=== PATIENT | female | born 1940 | race Caucasian/White ===

== ENCOUNTER 2017-05-12 11:37 | Emergency (ER) | payer OTHER, MEDICARE ==
[~2017-05-12] VITALS: Ht 167.6 cm; Wt 86.3 kg
[~2017-05-12 11:37] MED LIST: ALEVE220 M2 PO; ANTI-DIARRHEA2 MG PO; ASPIR-LOW81 MG PO; BAYER CHEWABLE81 MG PO; BENADRYL25 MG PO; BIOTIN 5000MCG PO; CLONAZEPAM1 MG PO; COMPAZINE10 MG PO; EFFEXOR XR150 MG PO; ENDOCET 5-3251 EACH PO; FLONASE16 G1 BOTH NARES; IBUPROFEN800 MG PO; LIPITOR20 MG PO; LOMOTIL TABLET1 EACH PO; METFORMIN HCL500 M1 PO; METFORMIN HCL500 M4 PO; RESTASIS MULTI5.5 ML BOTH EYES; TYLENOL ARTHRI650 MG PO
[2017-05-12] MEDS ORDERED: VITAMIN D2000 UNI1 PO (11:58)
[2017-05-12 12:19] LABS: EOSINOPHIL (%) 2.6 % (0-5); EOSINOPHIL COUNT 0.2 K/uL (0-0.3); HEMATOCRIT 39.2 % (36.0-46.0); IMMATURE GRANULOCYTE (%) 0.2 % (0.0-0.7); INSTRUMENT ABS NEUTROPHIL CT 4.4 K/uL; LYMPHOCYTE COUNT 0.9 K/uL (1.0-2.8); MCH 29.7 PG (29.0-34.0); MCHC 33.9 G/DL (30.0-36.0); MCV 87.5 FL (83-99); MEAN PLAT.VOLUME 9.4 uM^3 (9.5-12.4); MONOCYTE COUNT 0.3 K/uL (0-0.8); NEUTROPHIL (%) 75.8 % (45-76); NEUTROPHIL COUNT 4.4 K/uL (1.8-6.4); PLATELET COUNT 188 K/uL (156-360); RBC DIS.WIDTH-CV 13.1 % (11.8-14.6); RBC DIS.WIDTH-SD 41.9 % (39-53); RED BLOOD COUNT 4.48 M/uL (3.80-5.20); WHITE BLOOD COUNT 5.8 K/uL (4.1-10.2)
[2017-05-12 12:26] LABS: CHLORIDE 101 mEq/L (99-109); POTASSIUM 3.5 mEq/L (3.7-5.4)
[2017-05-12 12:27] LABS: MAGNESIUM 1.8 mg/dL (1.3-2.7); SODIUM 136 mEq/L (136-147)
[2017-05-12 12:29] LABS: GLUCOSE 229 mg/dL (70-99)
[2017-05-12 12:30] LABS: ANION GAP 8 MEQ/L (2-14)
[2017-05-12 12:31] LABS: TOTAL BILIRUBIN 0.5 mg/dL (0.0-1.0)
[2017-05-12 12:32] LABS: ALKALINE PHOSPHATASE 85 IU/L (3-129)
[2017-05-12 12:33] LABS: GFR ESTIMATE (CALCULATED) > 59 mL/min/
[2017-05-12 12:34] LABS: UREA NITROGEN (BUN) 10 mg/dL (9-23)
[2017-05-12 12:38] LABS: TROP-I INTERPRETATION NEGATIVE; TROPONIN-I < 0.01 ng/mL (0.0-0.30)
[2017-05-12] MEDS ORDERED: ZOFRAN ODT4 MG PO (15:11)
[2017-05-12] MEDS ORDERED: MECLIZINE HCL25 MG PO (15:11)
[2017-05-12 16:01] VITALS: BP 143/79
== END 2017-05-12 16:02 ==
LOC: EME → EDBD 11:37 → EME 16:02
PROVIDERS: Emergency Medicine
DX: H81.10 Benign paroxysmal vertigo, unspecified ear (principal); R51 Headache; J32.9 Chronic sinusitis, unspecified; R20.2 Paresthesia of skin; R11.0 Nausea; Z86.73 Personal history of transient ischemic attack (TIA), and cerebral infarction without residual deficits; E78.5 Hyperlipidemia, unspecified; E11.9 Type 2 diabetes mellitus without complications; Z79.84 Long term (current) use of oral hypoglycemic drugs; Z79.82 Long term (current) use of aspirin
CPT/HCPCS: 70450; 80053; 83735; 84484; 85025; 93005; 99281; 99285; J2405; J7040